=== PATIENT | female | born 1975 | race Caucasian/White ===

== ENCOUNTER 2017-03-03 12:10 | Emergency (ER) | payer OTHER | END 2017-03-03 13:19 | disposition home or self-care (01) | LOC: FER 12:10 | DX: S51.811A Laceration without foreign body of right forearm, initial encounter (principal); S40.812A Abrasion of left upper arm, initial encounter; Z23 Encounter for immunization; Z88.2 Allergy status to sulfonamides; X99.1XXA Assault by knife, initial encounter; Y07.59 Other non-family member, perpetrator of maltreatment and neglect | CPT/HCPCS: 90471; 90715 ==

== ENCOUNTER 2022-04-19 17:39 | Emergency (ER) | payer OTHER ==
[~2022-04-19 17:39] MED LIST: PREDNISONE50 MG PO; VENTOLIN HFA IN18 GM INH
[2022-04-19] MEDS ORDERED: MEDROL 4MG DOSEP4 MG PO (21:35)
[2022-04-19] MEDS ORDERED: CYCLOBENZAPRINE10 MG PO (21:35)
== END 2022-04-19 21:52 | disposition home or self-care (01) ==
LOC: FER 17:39
DX: M43.16 Spondylolisthesis, lumbar region (principal); M51.36 Other intervertebral disc degeneration, lumbar region; J45.909 Unspecified asthma, uncomplicated; Z88.2 Allergy status to sulfonamides
CPT/HCPCS: 72131; 96372; J1100; J1885